=== PATIENT | male | born 1995 | race Caucasian/White ===

== ENCOUNTER 2018-04-15 10:03 | Emergency (ER) | payer BC ==
[2018-04-15] MEDS ORDERED: ONDANSETRON HCL INJ/PF 4 MG/2 ML SDV IV ONE ×2 (10:11→12:00)
[2018-04-15] MEDS ORDERED: KETOROLAC TROMETHAMINE INJ/PF 30 MG/1 ML SDV IV ONE (10:11)
[2018-04-15] MEDS ORDERED: NORMAL SALINE 1000 ML 1,000 ML IV ONE (10:11)
--- NOTE | 2018-04-15 10:13 | ER Document Report ---
ED Medical Screen (RME) - General Chief Complaint: Flank Pain Stated Complaint: SIDE PAIN Time Seen by Provider: 04/15/18 10:10 Mode of Arrival: Ambulatory Information source: Patient TRAVEL OUTSIDE OF THE [place] IN LAST 30 DAYS: No - HPI Patient complains to provider of: R flank pain Onset: Just prior to arrival - Pt. with acute onset of R flank pain and hematuria - Related Data Allergies/Adverse Reactions: No Known Allergies Allergy (Verified 04/15/18 10:11) Past Medical History - Social History Frequency of alcohol use: None Drug Abuse: None Renal/ Medical History: Denies: Hx Peritoneal Dialysis Physical Exam - Vital signs Vitals: Temp Pulse BP Pulse Ox 97.8 F 77 150/115 H 97 04/15/18 10:08 04/15/18 10:08 04/15/18 10:08 04/15/18 10:08 Course - Vital Signs Vital signs: Temp Pulse Resp BP Pulse Ox 97.8 F 77 18 150/115 H 97 04/15/18 10:08 04/15/18 10:08 04/15/18 10:09 04/15/18 10:08 04/15/18 10:08
--- NOTE | 2018-04-15 10:44 | ER Document Report ---
ED General - General Chief Complaint: Flank Pain Stated Complaint: SIDE PAIN Time Seen by Provider: 04/15/18 10:10 Mode of Arrival: Ambulatory TRAVEL OUTSIDE OF THE [place] IN LAST 30 DAYS: No - HPI Notes: Patient is a 23-year-old male no significant past medical history who presents to the ED complaining of sudden onset right flank pain about an hour and a half ago. Patient states that he was driving to work when the pain started in his right flank. Patient states that the pain since then has been waxing and waning. Patient states that he did have nausea and vomiting associated with it as well as dysuria. No urethral discharge. Patient states that he was unable to get comfortable in any body position. He denies any injuries. He denies any smoking or IV drug use or alcohol involvement. Patient states that he did have a normal bowel movement thereafter. Patient states currently he is not in severe pain as he was since receiving Toradol and Zofran at triage. Denies any headache, fever, URI, sore throat, chest pain, palpitations, syncope, cough, shortness of breath, wheeze, dyspnea, abdominal pain, diarrhea, loss of control of bowel or bladder, numbness/tingling, saddle anesthesia, muscle paralysis/ weakness, or rash. - Related Data Allergies/Adverse Reactions: No Known Allergies Allergy (Verified 04/15/18 10:11) Past Medical History - General Information source: Patient - Social History Smoking Status: Never Smoker Frequency of alcohol use: None Drug Abuse: None Family History: Reviewed & Not Pertinent Patient has suicidal ideation: No Patient has homicidal ideation: No Renal/ Medical History: Denies: Hx Peritoneal Dialysis Review of Systems - Review of Systems -: Yes All other systems reviewed and negative Physical Exam - Vital signs Vitals: Temp Pulse BP Pulse Ox 97.8 F 77 150/115 H 97 04/15/18 10:08 04/15/18 10:08 04/15/18 10:08 04/15/18 10:08 - Notes Notes: PHYSICAL EXAMINATION: GENERAL: Well-appearing, well-nourished and in no acute distress. Appears comfortable. Moving w/o discomfort. HEAD: Atraumatic, normocephalic. EYES: Pupils equal round and reactive to light, extraocular movements intact, sclera anicteric, conjunctiva are normal. ENT: Nares patent and without discharge. oropharynx clear without exudates. No tonsilar hypertrophy or erythema. Moist mucous membranes. NECK: Normal range of motion, supple without lymphadenopathy LUNGS: Breath sounds clear to auscultation bilaterally and equal. No wheezes rales or rhonchi. HEART: Regular rate and rhythm without murmurs, rubs, gallops. ABDOMEN: Soft, nontender, nondistended abdomen. No guarding, no rebound. No masses appreciated. Normal bowel sounds present. No CVA tenderness bilaterally. Back: FROM. Strength 5+/5. No tenderness. Musculoskeletal: FROM to passive/active. Strength 5+/5. Extremities: No cyanosis, clubbing, or edema b/l. Peripheral pulses 2+. Capillary refill less than 3 seconds. NEUROLOGICAL: Normal speech, normal gait. PSYCH: Normal mood, normal affect. SKIN: Warm, Dry, normal turgor, no rashes or lesions noted. Course - Re-evaluation Re-evalutation: 04/15/18 11:55 Patient is an afebrile, well-hydrated, 23-year-old male who presents to the ED with a 2mm ureteral stone to the rt side with mild hydroureter/nephrosis. Vitals are acceptable without any significant tachycardia, tachypnea, or hypoxia. PE is otherwise unremarkable. See UA results, no signs of infection. UC pending. Patient was given Zofran and toradol which significantly helped with his pain. No other labs or imaging warranted at this time based on H&P. Patient is tolerating p.o. without difficulties and is nontoxic-appearing. Low suspicion/risk for urosepsis, acute appendicitis, bowel obstruction, acute cholecystitis, perforated diverticulitis, incarcerated hernia, pancreatitis, perforated ulcer, peritonitis, sepsis, testicular torsion, or other systemic emergent condition at this time. Patient is aware that his condition can change from initial presentation and he needs to monitor symptoms closely and seek medical attention if any acute changes. I will send him home with a prescription for zofran, flomax, and morphine IR. Conservative measures otherwise for symptoms. Recheck with PCM in 3-5 days. Consider consult with a urologist. Return to the ED with any worsening/concerning symptoms otherwise as reviewed in discharge. Patient is in agreement. - Vital Signs Vital signs: Temp Pulse Resp BP Pulse Ox 97.8 F 77 18 150/115 H 97 04/15/18 10:08 04/15/18 10:08 04/15/18 10:09 04/15/18 10:08 04/15/18 10:08 - Laboratory Laboratory results interpreted by me: 04/15/18 11:04 Urine Ketones TRACE H Urine Blood LARGE H Discharge - Discharge Clinical Impression: Ureteral stone with hydronephrosis Condition: Stable Disposition: HOME, SELF-CARE Instructions: Kidney Stone ([facility]), Oral Narcotic Medication ([facility]) Additional Instructions: Push fluids (i.e. water, cranberry juice) Proper hygenic technique Keep the skin clean Tylenol/ibuprofen as needed Take medications as directed F/u with your PCM in 3-5 days for a recheck Consider consult with a Urologist for ongoing/worsening symptoms. Return to the ED with any worsening symptoms and/or development of fever, headache, chest pain, palpitations, syncope, shortness of breath, trouble breathing, abdominal pain, n/v/d, blood in stool/urine, loss of control of bowel /bladder, urinary retention, or other worsening symptoms that are concerning to you. Prescriptions: Morphine Sulfate [Morphine Ir 15 Mg Tablet] 15 mg PO TID #15 tablet Ondansetron [Zofran Odt 4 mg Tablet] 1 - 2 tab PO Q4H PRN #15 tab.rapdis PRN Reason: For Nausea/Vomiting Tamsulosin HCl [Flomax] 0.4 mg PO DAILY #10 cap.er.24h Forms: Elevated Blood Pressure Referrals: [facility] [Provider Group] - Follow up as needed
--- NOTE | 2018-04-15 11:05 | RADIOLOGY REPORT (SQ) ---
EXAM DESCRIPTION: CT LTD RENAL STONE PROTOCOL ON COMPLETED DATE/TIME: 04/15/2018 10:34 am REASON FOR STUDY: R flank pain COMPARISON: None. TECHNIQUE: CT scan of the abdomen and pelvis performed without intravenous or oral contrast. Images reviewed with lung, soft tissue, and bone windows. Reconstructed coronal and sagittal MPR images revi ewed. All images stored on PACS. All CT scanners at this facility use dose modulation, iterative reconstruction, and/or weight based d osing when appropriate to reduce radiation dose to as low as reasonably achievable (ALARA). [facility]: Dose Right [facility]: CareDose [facility]: Dose Right [facility]: Teradose 4D [facility]: [employer] RADIATION DOSE: CT Rad equipment meets quality standard of care and radiation dose reduction techniq ues were employed. CTDIvol: 12.2 mGy. DLP: 716 mGy-cm.mGy. LIMITATIONS: Study is limited somewhat due to artifact related to orthopedic hardware in the lower t horacic and upper lumbar spine FINDINGS: LOWER CHEST: No significant findings. No nodules or infiltrates. NON-CONTRASTED LIVER, SPLEEN, ADRENALS: Evaluation limited by lack of IV contrast. No identified sign ificant masses. PANCREAS: No masses. No peripancreatic inflammatory changes. GALLBLADDER: No identified stones by CT criteria. No inflammatory changes to suggest cholecystitis. RIGHT KIDNEY AND URETER: No suspicious masses. Assessment limited by lack of IV contrast. Tiny nono bstructing renal calculus is identified. A small 1 a 2 mm in diameter obstructing calculus is identi fied in the right mid ureter best seen on image number 71 there is hydronephrosis of the right kidn ey and fullness of the right ureter proximal to this level. LEFT KIDNEY AND URETER: No suspicious masses. Assessment limited by lack of IV contrast. Tiny nonob structing renal calculus is identified. No hydronephrosis or hydroureter. AORTA AND RETROPERITONEUM: No aneurysm. No retroperitoneal masses or adenopathy. BOWEL AND PERITONEAL CAVITY: No obvious masses or inflammatory changes. No free fluid. APPENDIX: Normal. PELVIS, BLADDER, AND ABDOMINAL WALL:No abnormal masses. No free fluid. Bladder normal. BONES: Extensive postsurgical changes are identified in the lower thoracic and upper lumbar spines wi th orthopedic hardware. OTHER: No other significant finding. IMPRESSION: 1 2 mm in diameter obstructing calculus in the right mid ureter. Tiny bilateral nonobst ructing renal calculi are identified. Other findings as noted above COMMENT: Quality ID # [id number]: Final reports with documentation of one or more dose reduction techniques (e.g., Automated exposure control, adjustment of the mA and/or kV according to patient size, use of iterative reconstruction technique) TECHNICAL DOCUMENTATION: JOB ID: [id number] [email or web address] All Rights Reserved Reading location - IP/workstation name: [email or web address]
[2018-04-15 11:24] LABS: APPEARANCE,URINE SLIGHTLY-CLOUDY; BILIRUBIN,URINE NEGATIVE (NEGATIVE); COLOR,URINE YELLOW; GLUCOSE, URINE NEGATIVE (NEGATIVE); KETONES,URINE TRACE mg/dL (NEGATIVE); LEUKOCYTE ESTERASE,URINE NEGATIVE (NEGATIVE); NITRITE,URINE NEGATIVE (NEGATIVE); PROTEIN,URINE NEGATIVE (NEGATIVE); URINE SPECIFIC GRAVITY 1.018; UROBILINOGEN,URINE NEGATIVE mg/dL (<2.0)
[2018-04-15] MEDS ORDERED: MORPHINE SULFATE 10 MG/ML INJ IV ONE (12:00)
[2018-04-15 12:18] VITALS: BP 148/105
== END 2018-04-15 12:21 | disposition home or self-care (01) ==
LOC: ER 10:03
DX: N13.2 Hydronephrosis with renal and ureteral calculous obstruction (principal); R11.2 Nausea with vomiting, unspecified; R30.0 Dysuria
CPT/HCPCS: 96376; 99284; 96361; 96374; 96375; 81001; 76380; J1885; J2270; J2405; J7030